=== PATIENT | female | born 1985 | race Two or more races ===

== ENCOUNTER → 2022-02-13 | Emergency (ER) | payer OTHER ==
[~2022-02-13] VITALS: Ht 172.7 cm; Wt 90.7 kg
[2022-02-13 22:25] VITALS: BP 105/66
== END | disposition left against medical advice (07) ==
LOC: EDUNIT# 22:08 → EDBD 22:22 → ER 22:27
DX: R10.13 Epigastric pain (principal); Z53.21 Procedure and treatment not carried out due to patient leaving prior to being seen by health care provider